=== PATIENT | female | born 1970 | race Caucasian/White ===

== ENCOUNTER → 2022-06-10 | Outpatient (CLI) | payer OTHER ==
[~2022-06-10] MED LIST: GADOBENATE DIMEGLUMINE 1 ML IV ONE; IOPAMIDOL 300 MG/ML 15ML VIAL IT ONE; LIDOCAINE HCL 1% LOCAL INJ 20 ML VIAL ONE
== END ==
LOC: DX 12:25
PROVIDERS: ATTEND Specialist
DX: S46.011A Strain of muscle(s) and tendon(s) of the rotator cuff of right shoulder, initial encounter (principal); S43.431A Superior glenoid labrum lesion of right shoulder, initial encounter
CPT/HCPCS: 73040; 73222; 77002; A9577; J2001; Q9967